=== PATIENT | male | born 1985 | race African-American/Black ===

== ENCOUNTER 2017-04-05 18:16 | Emergency (ER) | payer SELFPAY ==
[~2017-04-05] VITALS: Ht 177.8 cm; Wt 64.0 kg
[2017-04-05] MEDS ORDERED: PLEASE ENTER ALLERGIES MC SCH ×2 (19:30)
[2017-04-05] MEDS ORDERED: LORazepam 1MG TABLET PO ONE (19:30)
[2017-04-05 21:23] VITALS: BP 120/62
== END 2017-04-05 21:26 | disposition home or self-care (01) ==
LOC: ED 21:20
DX: F41.1 Generalized anxiety disorder (principal)
CPT/HCPCS: 99284

== ENCOUNTER 2020-07-18 06:54 | Emergency (ER) | payer MEDICAID ==
[~2020-07-18] VITALS: Ht 177.8 cm; Wt 64.0 kg
[2020-07-18 06:57] VITALS: BP 131/80
--- NOTE | 2020-07-18 07:30 | NUR ---
PT PROVIDED WITH [facility] FOR PSYCH, MED ASSISTANCE, SHELTERS, PRIMARY CARE PROVIDERS
== END 2020-07-18 09:46 | disposition home or self-care (01) ==
LOC: ED 08:56
DX: G89.11 Acute pain due to trauma (principal); M25.561 Pain in right knee; F31.9 Bipolar disorder, unspecified
CPT/HCPCS: 29505; 99283

== ENCOUNTER 2020-07-19 01:29 | Emergency (ER) | payer MEDICAID ==
[~2020-07-19] VITALS: Ht 177.8 cm; Wt 63.6 kg
[2020-07-19 01:33] VITALS: BP 117/74
--- NOTE | 2020-07-19 01:53 | NUR ---
PT AMBULATORY WITH STEADY GAIT TO ROOM, CARRYING CRUTCHES, KNEE IMMOBILZER IN PLACE FROM PREVIOUS VISIT.
== END 2020-07-19 02:49 | disposition home or self-care (01) ==
LOC: ED 02:00
DX: M25.561 Pain in right knee (principal); G89.29 Other chronic pain
CPT/HCPCS: 99281

== ENCOUNTER 2020-07-23 17:03 | Emergency (ER) | payer MEDICAID ==
[~2020-07-23] VITALS: Ht 177.8 cm; Wt 63.7 kg
[2020-07-23 17:19] VITALS: BP 127/76
--- NOTE | 2020-07-23 18:27 | NUR ---
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
[2020-07-23] MEDS ORDERED: NAPROXEN 500 MG TABLET ONE (18:54)
[2020-07-23] MEDS ORDERED: NAPROXEN 500 MG TABLET PO ONE (19:00)
== END 2020-07-23 19:34 | disposition home or self-care (01) ==
LOC: ED 19:32
DX: M25.561 Pain in right knee (principal); M79.661 Pain in right lower leg; M79.89 Other specified soft tissue disorders
CPT/HCPCS: 99284

== ENCOUNTER 2020-07-23 22:37 | Emergency (ER) | payer MEDICAID ==
[~2020-07-23] VITALS: Ht 175.3 cm; Wt 64.0 kg
[2020-07-23] MEDS ORDERED: SODIUM CHLORIDE 0.9% 1,000ML IVBOLUS ONE (23:00)
[2020-07-23 23:01] LABS: BASOPHILS % (AUTO) 1 % (0-1); EOSINOPHILS % (AUTO) 3 % (1-7); LYMPHOCYTES % (AUTO) 40 % (22-44); MEAN CORPUSCULAR HEMOGLOBIN 30.2 pg (27.5-34.5); MEAN CORPUSCULAR HGB CONC 33.1 g/dL (33.2-36.2); MEAN PLATELET VOLUME 7.7 fL (7.4-10.4); MONOCYTES % (AUTO) 9 % (2-9); NEUTROPHILS % (AUTO) 47 % (42-75); PLATELET COUNT 234 x10^3/uL (130-400); RED BLOOD COUNT 4.45 x10^6/uL (4.38-5.82); RED CELL DISTRIBUTION WIDTH 13.1 % (9.4-14.8)
[2020-07-23 23:07] LABS: MD NO
[2020-07-23 23:13] LABS: ANION GAP 8 mmol/L (5-15); CHLORIDE 107 mmol/L (98-107); CREATININE 1.34 mg/dL (0.7-1.3)
[2020-07-23] MEDS ORDERED: NALOXONE 0.4 MG/ML, 1ML ONE (23:39)
--- NOTE | 2020-07-23 23:42 | NUR ---
PT MEDICATED PER MAR.
--- NOTE | 2020-07-23 23:47 | NUR ---
Narcan given. No improvement.
--- NOTE | 2020-07-23 23:52 | NUR ---
MD aware of low BP.
[2020-07-24] MEDS ORDERED: NALOXONE 0.4 MG/ML, 1ML IVPush ONE
[2020-07-24] MEDS ORDERED: SODIUM CHLORIDE 0.9% 1,000ML IVBOLUS ONE
--- NOTE | 2020-07-24 | NUR ---
MD AWARE OF CONTINUED HYPOTENSION, PT WITH PULSES PRESENT THROUGHOUT, AWAKENS VERBAL AND IS AA AND O TIMES 4.
--- NOTE | 2020-07-24 00:31 | NUR ---
notified of low BP.
--- NOTE | 2020-07-24 01:00 | NUR ---
Pt attempted to urinate for UDS. Unable to provide sample at this time.
--- NOTE | 2020-07-24 01:06 | NUR ---
TASK RN: PT VS UPDATED IN EMR. [place] [facility] [place]
[2020-07-24 01:52] VITALS: BP 103/65
== END 2020-07-24 01:54 | disposition home or self-care (01) ==
LOC: ED 23:07
DX: G92 Toxic encephalopathy (principal); G89.29 Other chronic pain; M79.604 Pain in right leg; I95.9 Hypotension, unspecified
CPT/HCPCS: 36415; 80048; 85025; 96361; 96374; 99283; J2310; J7030

== ENCOUNTER 2020-07-30 09:52 | Emergency (ER) | payer MEDICAID ==
[~2020-07-30] VITALS: Ht 177.8 cm; Wt 66.0 kg
--- NOTE | 2020-07-30 09:52 | NUR ---
INITIAL PT CONTACT. PT BIBA C/O RIGHT KNEE PAIN. PT STATES "I TORE MY ACL 2 YEARS AGO AND NEED SURGERY, I NEVER GOT IT. I FELL TODAY AND TWISTED IT". [facility] INTACT. PT PLACED IN HOSPITAL GOWN ON GURNEY AND PROVIDED BLANKET. PER MEDICS, PT HAS HX OF BIOLAR AND HAS BEEN NON COMPLIAN WITH MEDICATIONS. PT SITTING ON GURNEY WITH REPETITIVE RABLING ABOUT RECENT INCARCERATION AND KNEE PAIN. WHEN ASKED QUESTIONS, PT RESPONDS APPROPRIATELY AND IMMEDIATELY RETURNS TO RAMBLING STATEMENTS. CALL LIGHT IN REACH, FALL PRECAUTIONS IN PLACE. WILL CONTINUE TO MONITOR.
[2020-07-30 10:49] VITALS: BP 114/85
== END 2020-07-30 11:13 | disposition home or self-care (01) ==
LOC: ED 09:57
DX: S80.01XA Contusion of right knee, initial encounter (principal); F31.9 Bipolar disorder, unspecified; X50.1XXA Overexertion from prolonged static or awkward postures, initial encounter; Y93.01 Activity, walking, marching and hiking; Y92.488 Other paved roadways as the place of occurrence of the external cause; Y99.8 Other external cause status
CPT/HCPCS: 99283

== ENCOUNTER 2020-07-31 20:01 | Emergency (ER) | payer MEDICAID ==
[~2020-07-31] VITALS: Ht 177.8 cm; Wt 63.7 kg
[2020-07-31 20:19] VITALS: BP 139/71
== END 2020-07-31 20:57 | disposition home or self-care (01) ==
LOC: ED 20:05
DX: M25.561 Pain in right knee (principal); F17.210 Nicotine dependence, cigarettes, uncomplicated; Z72.9 Problem related to lifestyle, unspecified
CPT/HCPCS: 99281

== ENCOUNTER 2020-08-04 02:14 | Emergency (ER) | payer MEDICAID ==
[~2020-08-04] VITALS: Ht 180.3 cm; Wt 77.0 kg
[2020-08-04 02:18] VITALS: BP 132/76
[2020-08-04] MEDS ORDERED: IBUPROFEN 600 MG TABLET ONE (02:50)
[2020-08-04] MEDS ORDERED: IBUPROFEN 600 MG TABLET PO ONE (03:00)
--- NOTE | 2020-08-04 03:04 | NUR ---
PT AMBULATORY AT DISCHARGE. VERBALIZED UNDERSTANDING.
== END 2020-08-04 03:07 | disposition home or self-care (01) ==
LOC: ED 02:25
DX: M25.561 Pain in right knee (principal)
CPT/HCPCS: 99283

== ENCOUNTER 2020-08-05 02:01 | Emergency (ER) | payer MEDICAID ==
[~2020-08-05] VITALS: Ht 177.8 cm; Wt 63.4 kg
[2020-08-05 02:05] VITALS: BP 124/78
--- NOTE | 2020-08-05 02:48 | NUR ---
PT KNEE BRACE READJUSTED. PT TOLD HE IS UP FOR DISCHARGE. PT SAID HE WAS GOING TO CALL THE POLICE BECAUSE HE WAS DISCHARGE. PA CAME TO TALK TO PT TO ATTEMPT TO DEESCALATE. PT REFUSED TO LEAVE. SECURITY CALLED. SECURITY ESCORTED PT.
== END 2020-08-05 02:50 | disposition home or self-care (01) ==
LOC: ED 02:12
DX: M25.561 Pain in right knee (principal)
CPT/HCPCS: 99281

== ENCOUNTER 2020-08-06 19:53 | Emergency (ER) | payer MEDICAID | END 2020-08-06 20:23 | disposition home or self-care (01) | LOC: ED 20:05 | DX: R52 Pain, unspecified (principal); Z53.21 Procedure and treatment not carried out due to patient leaving prior to being seen by health care provider ==